=== PATIENT | female | born 1995 | race Caucasian/White ===

== ENCOUNTER 2018-02-01 20:09 | Emergency (ER) | payer OTHER ==
[2018-02-01] MEDS: Acetaminophen/HYDROcodone 325-5 MG Tab ONE ×2 (20:43→20:50)
[2018-02-01] MEDS: Ondansetron 4 MG Tab.DIS ONE (20:43)
[2018-02-02] MEDS ORDERED: Ondansetron 4 MG Tab.DIS PO ONE (01:02)
[2018-02-02] MEDS ORDERED: Acetaminophen/HYDROcodone 325-5 MG Tab PO ONE (01:03)
[2018-02-02] MEDS: Ondansetron 4 MG Tab.DIS ONE (01:04)
--- NOTE | 2018-02-02 09:29 | CR ---
EXAM DATE: 02/01/18 PATIENT'S AGE: 22 Patient: MARILYN DANIELS Facility: [place], [place] Site . Site : 1995 Study: XRay Extremity Right hand [id number]/4/2018 8:32:01 PM Ordering Physician: Doctor Johns Final Report: HISTORY: Injury. FINDINGS: Two views of the right hand demonstrate an intra-articular oblique fracture of the proximal epiphysis of the distal phalanx of the 5th finger along the radial and palmar aspect. IMPRESSION: Non-displaced intra-articular fracture of the proximal epiphysis distal phalanx of the 5th finger. Dictated by Navya Hawkins MD @ 02/01/2018 8:54:23 PM Dictated by: Navya Hawkins MD @ 02/01/2018 20:54:55 (Electronic Signature) Report Signed by Proxy. JASIEL
== END 2018-02-01 21:20 | disposition home or self-care (01) ==
LOC: MW.ED 20:09
DX: S62.666A Nondisplaced fracture of distal phalanx of right little finger, initial encounter for closed fracture (principal); W01.198A Fall on same level from slipping, tripping and stumbling with subsequent striking against other object, initial encounter
CPT/HCPCS: 73120; 99283; A9270

== ENCOUNTER 2018-04-27 12:34 | Emergency (ER) | payer OTHER ==
--- NOTE | 2018-04-27 13:01 | EDM.PDOC ---
ED HPI GENERAL MEDICAL PROBLEM - General Chief Complaint: Upper Extremity Injury/Pain Stated Complaint: RIGHT HAND PAIN FROM FALL Time Seen by Provider: 04/27/18 12:39 - History of Present Illness INITIAL COMMENTS - FREE TEXT/NARRATIVE: HISTORY AND PHYSICAL: History of present illness: The patient is a healthy 22-year-old female who presents after falling last evening and landing onto her right hand. The patient is right-hand dominant and says she was in her usual state of good health with no systemic complaints last evening when she went in to check her daughter and there was a small on the floor which she stepped on and it proceeded to fall landing onto the ulnar aspect of her right hand. She didn't hit her head pass out or black out and has no head neck or back pain and only has pain at the dorsal aspect of the right hand. She says it is painful to move and she has not been moving the fingers very much and now she is feeling tingling going up her wrist and ulnar aspect of her forearm. She has slight wrist pain at the ulnar styloid but no forearm pain elbow pain or proximal humerus and shoulder discomfort. Patient is eating normally and has no other systemic complaints and has used [id number] Tylenol and ibuprofen for pain. She says she has injured this and in the past but did not require any surgical intervention. Review of systems: As per history of present illness and below otherwise all systems reviewed and negative. Past medical history: As per history of present illness and as reviewed below otherwise noncontributory. Surgical history: As per history of present illness and as reviewed below otherwise noncontributory. Social history: No reported history of drug or alcohol abuse. Family history: As per history of present illness and as reviewed below otherwise noncontributory. Physical exam: General: Well-developed well-nourished overweight female who is nontoxic and ambulated into the ED without distress.Vitals are noted by me HEENT: Atraumatic, normocephalic, pupils reactive, negative for conjunctival pallor or scleral icterus, mucous membranes moist, throat clear, neck supple, nontender, trachea midline. Lungs: Clear to auscultation, breath sounds equal bilaterally, chest nontender. Heart: S1S2, regular rate and rhythm no overt murmurs Abdomen: Soft, nondistended, nontender. NABS Pelvis: Deferred Genitourinary: Deferred. Rectal: Deferred. Extremities: Atraumatic full range of motion of all extremities with the exception of the right hand where there is tenderness and swelling at the fourth and fifth metacarpals extending to the right fifth digit. There are no palpable bony deformities patient doesn't tolerate much pressure on the area. The thumb index and third fingers can range of motion without discomfort and there are no defects deformities or soft tissue swelling appreciated there. The fourth digit there is discomfort with range of motion but there is no swelling in the fifth digit the patient will not range of motion flex or extend due to discomfort only. There is some swelling at the distal aspect of the fifth digit. There is some mild tenderness at the wrist near the ulnar styloid without defects deformities or swelling and the remainder of the right upper extremity is without tenderness defects or deformities. The legs are negative for cords or calf pain. Neurovascular unremarkable. Neuro: Awake, alert, oriented. Cranial nerves II through XII unremarkable. Cerebellum unremarkable. Motor and sensory unremarkable throughout. Exam nonfocal. Diagnostics: X-ray right hand and wrist Therapeutics: sling efraín tape digits 4 and 5 of the right hand, Velcro cock-up splint I discussed with the patient the testing results including the healing fracture at the fifthDIP as well as the possible new volar plate fracture of the DIP of the fifth digit. We will efraín tape digits 4 and 5 and give her a Velcro cock- up splint for comfort. I will also give her a sling and referral to our hand specialist Impression: Healing fracture of the fifth distal phalanx and a possible dorsal plate fracture of the DIP of the fifth right digit Definitive disposition and diagnosis as appropriate pending reevaluation and review of above. 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: - Infectious Disease History Infectious Disease History: Reports: Chicken Pox - Past Surgical History HEENT Surgical History: Reports: Tonsillectomy GI Surgical History: Reports: Cholecystectomy Female Surgical History: Reports: Kidney stone extraction Social & Family History - Family History Family Medical History: Noncontributory - Tobacco Use Smoking Status *Q: Former Smoker Used Tobacco, but Quit: Yes Month/Year Tobacco Last Used: 2013 - Caffeine Use Caffeine Use: Reports: Coffee - Recreational Drug Use Recreational Drug Use: No Review of Systems - Review of Systems Review Of Systems: ROS reveals no pertinent complaints other than HPI. ED EXAM, GENERAL - Physical Exam Exam: See Below (See dictation) Course - Vital Signs Last Recorded V/S: Last Vital Signs Temp 36.7 C 04/27/18 12:45 Pulse 94 04/27/18 12:45 Resp 16 04/27/18 12:45 BP 137/98 H 04/27/18 12:45 Pulse Ox 98 04/27/18 12:45 - Orders/Labs/Meds Orders: Active Orders 24 hr Category Date Time Status DME for Discharge [COMM] Stat Oth 04/27/18 14:11 Ordered DME for Discharge [COMM] Stat Oth 04/27/18 14:11 Ordered Departure - Departure Time of Disposition: 14:13 Disposition: Home, Self-Care 01 Condition: Good Clinical Impression: Closed fracture dislocation of distal interphalangeal (DIP) joint Contusion of hand Qualifiers: Encounter type: initial encounter Laterality: right Qualified Code(s): S60.221A - Contusion of right hand, initial encounter - Discharge Information Referrals: PCP,None [Primary Care Provider] - Forms: ED Department Discharge Additional Instructions: The following information is given to patients seen in the emergency department who are being discharged to home. This information is to outline your options for follow-up care. We provide all patients seen in our emergency department with a follow-up referral. The need for follow-up, as well as the timing and circumstances, are variable depending upon the specifics of your emergency department visit. If you don't have a primary care physician on staff, we will provide you with a referral. We always advise you to contact your personal physician following an emergency department visit to inform them of the circumstance of the visit and for follow-up with them and/or the need for any referrals to a consulting specialist. The emergency department will also refer you to a specialist when appropriate. This referral assures that you have the opportunity for followup care with a specialist. All of these measure are taken in an effort to provide you with optimal care, which includes your followup. Under all circumstances we always encourage you to contact your private physician who remains a resource for coordinating your care. When calling for followup care, please make the office aware that this follow-up is from your recent emergency room visit. If for any reason you are refused follow-up, please contact the [facility] emergency department at and ask to speak to the emergency department charge nurse. [facility] Specialty clinic-Plastic Surgery and Hand Surgery Professional Building [address] [place] [id number] Keep the 2 fingers efraín taped and replace tape as needed until you're followed up by the hand specialist. It is not totally clear if there is a fracture in the last part of your right fifth finger. Need to follow-up with a specialist for that. The Velcro splint is just for comfort for the bruising of your hand. Please ice and elevate the area and use [id number] ibuprofen/Motrin for pain and only at the stronger pain medication as needed especially for sleep times. Please use the resources given to above to call and schedule a follow-up appointment with our specialist and return to ER as needed as discussed - My Orders Last 24 Hours: My Active Orders 04/27/18 14:11 DME for Discharge [COMM] Stat DME for Discharge [COMM] Stat - Assessment/Plan Last 24 Hours: My Active Orders 04/27/18 14:11 DME for Discharge [COMM] Stat DME for Discharge [COMM] Stat
--- NOTE | 2018-04-27 13:59 | CR ---
EXAMINATION: Right wrist and right hand HISTORY: Pain COMPARISON: None TECHNIQUE: 2 views of the right wrist and 3 views of the right hand FINDINGS: There is joint space narrowing involving the DIP joint of the fifth digit and possible dors al plate fracture. Remaining osseous structures and joint spaces appear preserved. Radiocarpal alignm ent is normal. Bone mineralization is normal. IMPRESSION: 1. Healing distal fifth phalanx fracture. 2. Otherwise no acute osseous abnormality.
== END 2018-04-27 14:26 | disposition home or self-care (01) ==
LOC: MW.ED 12:34
DX: S62.636A Displaced fracture of distal phalanx of right little finger, initial encounter for closed fracture (principal); S60.221A Contusion of right hand, initial encounter; Z88.5 Allergy status to narcotic agent; Z88.0 Allergy status to penicillin; Z88.2 Allergy status to sulfonamides; Z87.891 Personal history of nicotine dependence; W19.XXXA Unspecified fall, initial encounter
CPT/HCPCS: 73100-26-RT; 73100-RT; 73130-26-RT; 73130-RT; 99283